=== PATIENT | male | born 1990 | race African-American/Black ===

== ENCOUNTER 2017-02-18 18:13 | Emergency (ER) | payer OTHER ==
[2017-02-18 19:34] VITALS: BP 133/80
== END 2017-02-18 19:57 | disposition home or self-care (01) ==
LOC: ED 18:13
DX: S39.012A Strain of muscle, fascia and tendon of lower back, initial encounter (principal); J45.909 Unspecified asthma, uncomplicated; V89.2XXA Person injured in unspecified motor-vehicle accident, traffic, initial encounter; Y93.89 Activity, other specified; Y99.8 Other external cause status; Y92.89 Other specified places as the place of occurrence of the external cause